=== PATIENT | female | born 1990 | race Caucasian/White ===

== ENCOUNTER → 2018-09-23 | Outpatient (CLI) | payer OTHER ==
--- NOTE | 2018-09-27 16:37 | 24HR ---
[place] [address] [employer]OL[employer] MONITOR REPORT Name: ARPIT STERLING Room: [facility]#: [id number] Admission: 09/23/18 Attend Phys: Delisa Deras Discharge: Date of : 89 Date of Service: 09/27/18 1236 Report #: [id number] THIS REPORT FOR: //name// [facility] Test Date: 2018-09-27 Test Time: 12:36:38 Pat Name: ARPIT STERLING Department: Room: Gender: F Supervisor Plate Pasting: : 1990 Requested By: Delisa Cabrera Order Number: [id number] Reading MD: Pedro Pablo Barry Interpretive Statements Mean Heart Rate: 76 Total Beats: [id number] Maximum Heart Rate:166 @ 1:35pm1 Tachycardia beats: 05518 (>=100 BPM) 11% Minimum Heart Rate: 49 @ 3:51am2 Bradycardia beats: 5 (<= 50 BPM) 0% Pauses: 0 (> 2.5 sec.) Longest RR at: 1.261 seconds at 3:50am2 Impression 1. underlying NSR 2. No SVT or afib 3. Rare PVC or PACs Electronically Signed On 09-27-2018 16:36:52 [employer] TECHNICIAN by Pedro Pablo Barry [email or web address] <ELECTRONICALLY SIGNED> By: Pedro Pablo Barry MD, [facility] 09/27/18 1636 1236 1236 Pedro Pablo Barry MD, FAC /EPI
== END ==
LOC: M.ULTRA 09-20 16:33
DX: R10.13 Epigastric pain (principal); R94.31 Abnormal electrocardiogram [ECG] [EKG]; R10.9 Unspecified abdominal pain